=== PATIENT | female | born 1980 | race American Indian/Alaskan Native ===

== ENCOUNTER 2016-11-17 08:10 | Day surgery (SDC) | payer OTHER ==
[2016-11-10 11:57] VITALS: BMI 24.5
[2016-11-17] MEDS ORDERED: Midazolam 2 MG/2 ML VIAL ONE (08:26)
[2016-11-17] MEDS ORDERED: Rocuronium 10 mg/ml (5 ml) ONE (08:26)
[2016-11-17] MEDS ORDERED: Propofol 10 mg/ml Inj (20 ML) ONE (08:26)
[2016-11-17] MEDS ORDERED: ePHEDrine 50 mg/ml Inj ONE (08:26)
[2016-11-17] MEDS ORDERED: Phenylephrine 10 mg/ml Inj ONE (08:27)
[2016-11-17] MEDS ORDERED: Succinylcholine 200 mg/10 ml Inj IV ONE (08:36)
[2016-11-17] MEDS ORDERED: Lactated Ringer's 1,000 ML IV ONE (09:30)
[2016-11-17] MEDS ORDERED: Dexamethasone 4 mg/1 ml ONE (09:53)
[2016-11-17] MEDS ORDERED: Bupivacaine HCl 0.5% PF (30 ml) Inj ONE (10:03)
[2016-11-17] MEDS ORDERED: Neostigmine Methylsulfate 3mg/3ml Syringe IV ONE (10:34)
[2016-11-17] MEDS ORDERED: HYDROmorphone 0.5 mg/0.5 ml ISec IVP PRN (11:31)
[2016-11-17] MEDS ORDERED: DiphenhydrAMINE 50 mg/ml Inj IVP PRN (11:31)
[2016-11-17] MEDS ORDERED: Labetalol 5 mg/ml Inj 20ML IVP PRN (11:31)
--- NOTE | 2016-11-17 11:38 | PCM.ANESB4 ---
Infraclavicular Block - Femoral Nerve Block Date of Procedure: 11/17/16 Procedure Performed: Brachial Plexus at the Infraclavicular area Right - Procedure Infraclavicular Block: The procedure was explained to the patient that it is for the post-operative pain management. Consent was obtained after a thorough discussion with the patient regarding the benefits and possible complications of local anesthetic block of the brachial plexus at the infraclavicular area. The patient was brought to the operating room and standard monitors were applied. Time-out was held with the circulating nurse to confirm the correct surgery and the appropriate block. After applying oxygen by nasal cannula and administering IV Sedation, patient's head was gently rotated away from the operative shoulder and the area medial to the coracoid process and inferior to the clavicle was carefully palpated. The ultrasound transducer was then applied to the skin in the transverse plane and the brachial plexus was visualized surrounding the axillary artery and deep to the pectoralis major and minor muscles. After thorough identification, this area was prepped with Betadine solution three times and 1 % Lidocaine was injected subcutaneously for topical anesthesia. At this point, a #21 gauge Stimuplex 4-inch needle was inserted cephalad to the ultrasound transducer and inferior to the clavicle in-plane towards the posterior aspect of the axillary artery. Needle advancement was performed carefully under ultrasound visualization. Nerve stimulator was used and twitch of the affected extremity including fingers, hand, wrist and elbow was obtained at current of __0.3___MA. After repeated negative aspiration, ___30__cc of 0.5 % Bupivacaine was injected. Under ultrasound guidance the local anesthetics were observed surrounding the cords of the brachial plexus. The needle was removed intact and sterile dressing was applied. The patient had stable vital signs, was conscious and in no apparent distress. The patient tolerated the infraclavicular block of the brachial plexus well with stable vital signs.
[2016-11-17] MEDS ORDERED: Trimethobenzamide 200 mg/2 mL Inj IM PRN (11:44)
[2016-11-17] MEDS ORDERED: Labetalol 5mg/ml (4ml) ONE (11:45)
[2016-11-17] MEDS ORDERED: Oxycodone/Acetaminophen 5/325 mg Tab PO PRN (11:45)
--- NOTE | 2016-11-17 11:50 | PCM.SURG1 ---
Surgeon's Initial Post Op Note - Surgeon's Notes Surgeon: Dr. Denton Olson Rivet Heater: Phyllis Rousseau PA-C Type of Anesthesia: General Endo Anesthesia Administered By: Dr. Ferreira Pre-Operative Diagnosis: Right Distal Radius Fracture Operative Findings: see operative note Post-Operative Diagnosis: same Operation Performed: Open Reduction Internal Fixation of Right Distal Radius Fracture (Synthes Plate) Specimen/Specimens Removed: none Estimated Blood Loss: EBL {In ML}: 5 Drains Used: No Drains Post-Op Condition: Good Date of Surgery/Procedure: 11/17/16 Time of Surgery/Procedure: 08:45
--- NOTE | 2016-11-17 11:54 | CP.PCM.DIS ---
Provider - Provider Attending physician: Denton Olson MD Primary care physician: Leo Koch MD Time Spent in preparation of Discharge (in minutes): 30 Diagnosis - Discharge Diagnosis (1) Fracture of right distal radius Status: Acute Priority: Medium Discharge Plan - Follow Up Plan Condition: GOOD Disposition: HOME/ ROUTINE Patient education suggested?: Yes Additional Instructions: Pt post op Open Reduction Internal Fixation of Right Distal Radius Fracture,s/p Right Infraclavicular Nerve Block by anesthesia,VSS,wound C/D/I,RUE NVI,splint and sling patent,pt given pain medication script,follow up appt date,wound care instructions,pt is non weight bearing to RUE,stable for d/c home with family. Referrals: Leo Koch [Primary Care Provider] -
[2016-11-17 13:10] VITALS: RESP 18
[2016-11-17 16:09] VITALS: BP 141/84; PULSE 102; TEMP 97.8; O2SAT 100
--- NOTE | 2016-11-17 16:24 | OP ---
PROCEDURE DATE: 11/17/2016 SURGEON: Denton Olson MD PILLOWCASE CLEANER: Phyllis Rousseau PA-C PREOPERATIVE DIAGNOSIS: Intraarticular displaced right distal radius fracture, 3-part. POSTOPERATIVE DIAGNOSIS: Intraarticular displaced right distal radius fracture , 3-part. PROCEDURE: Open reduction, internal fixation of right distal radius fracture with a Synthes volar distal radius plate. ANESTHESIA: Regional and supplemental intravenous sedation. COMPLICATIONS: None. BLOOD LOSS: None. SPECIMENS: None. DISPOSITION: Stable to recovery room. OPERATIVE FINDINGS: A displaced distal radius fracture was amenable to anatomic reduction with rigid fixation. DESCRIPTION OF PROCEDURE: The patient was taken to the operating room and placed supine on the operating room table. After adequate regional anesthesia and supplemental intravenous sedation was given, a well-padded nonsterile tourniquet was placed on the patient's right upper extremity. The right upper extremity was then prepped and draped in standard surgical fashion. Prophylactic antibiotics were given. The proposed incision was marked out with a sterile marking pen. This was a longitudinal incision along the course of the flexor carpi radialis tendon. The incision angled across the wrist flexion crease. The arm was elevated and exsanguinated with an Esmarch bandage. The tourniquet was inflated to 250 mmHg. The Esmarch bandage was removed. An incision was made through skin only. All superficial veins were cauterized. Dissection was performed down to the superficial layers of the flexor carpi radialis sheath. It was incised along its radial most border to prevent injury to the palmar cutaneous nerve. The FCR tendon was retracted ulnarly. The floor of the FCR sheath was incised as well along its radial most border. Dissection was then carried out between the radial artery and the flexor pollicis longus. Any intervening small branches of the radial artery were cauterized. The pronator quadratus was then visualized. It was incised in an L-shaped fashion over its insertion of the radius. The fracture was then visualized and explored. There was a depression of the articular surface. The fracture was freed with a [place] and elevated to an anatomic position. Using combination of curettes and rongeurs, all early callus was removed. The fracture was then irrigated with a copious amount of normal saline and suction. Reduction maneuver was then performed. Next, a right volar Synthes plate was then applied to the volar aspect of the distal radius. It was temporarily transfixed with Alexey wires and its location was assessed under image intensification in multiple planes. Excellent placement of the plate was seen and near anatomic reduction was obtained as well. Two cortical screws were placed in the proximal part of the plate followed by locking pegs in the distal aspect of the plate. Once again, the fracture was assessed under image intensification and excellent screw placement with anatomic reduction of the fracture was seen. The temporary K- wires were removed. All screws were tightened. Once again, the image intensification revealed excellent placement of the screws with no screws penetrating the radiocarpal joint or DRUJ. All screws were noted to be of excellent length. The wound was then irrigated with a copious amount of normal saline. The DRUJ was assessed and it was stable. Full passive range of motion of the wrist and elbow was obtainable. The pronator quadratus was then repaired back to its anatomic insertion using 2-0 Vicryl suture. The entire plate was covered with the pronator quadratus muscles. The tourniquet was deflated. Hemostasis was obtained with bipolar cautery. The skin was closed using 4-0 nylon interrupted sutures. A sterile dressing was placed consisting of fluffs, 4 x 4 and a thumb spica splint. The patient tolerated the procedure well and was brought to recovery room awake, alert and in excellent condition. Phyllis Diego is a certified physician regulatory assistant who assisted me through out the entire case. Her help was needed from proper patient positioning, retraction, fracture reduction and closure. Denton Olson M.D. cc: [id number] TT: 11/17/2016 16:23:29 ulysses BOURNE
== END 2016-11-17 16:15 | disposition home or self-care (01) ==
LOC: H.OPSURG 08:10
PROVIDERS: ATTEND Orthopaedic Surgery
DX: S52.521A Torus fracture of lower end of right radius, initial encounter for closed fracture (principal); X58.XXXA Exposure to other specified factors, initial encounter